=== PATIENT | male | born 1960 | race Caucasian/White ===

== ENCOUNTER 2017-03-17 20:32 | Emergency (ER) | payer SELFPAY ==
[2017-03-17 20:32] VITALS: BMI 26.6
[2017-03-17 21:26] VITALS: BP 130/80; PULSE 100; RESP 18; TEMP 98.2; O2SAT 97
--- NOTE | 2017-03-17 21:38 | C.PDOC ---
History Of Present Illness 56 year old male who presents to the ER with a complaint of pain to the left 5th toe nail for the past 2 days. Patient has not taken anything for the pain; denies trauma, warmth, or redness to the area. Time Seen by Provider: 03/17/17 21:04 Chief Complaint (Nursing): Lower Extremity Problem/Injury History Per: Patient History/Exam Limitations: no limitations Onset/Duration Of Symptoms: Days (2) Current Symptoms Are (Timing): Still Present Recent travel outside of the [place]: No Past Medical History Reviewed: Historical Data, Nursing Documentation, Vital Signs Vital Signs: Last Vital Signs Temp 98.2 F 03/17/17 20:35 Pulse 100 H 03/17/17 20:35 Resp 18 03/17/17 20:35 BP 130/80 03/17/17 20:35 Pulse Ox 97 03/17/17 21:39 - Medical History PMH: Hypercholesterolemia Surgical History: No Surg Hx Family History: States: Unknown Family Hx - Social History Hx Tobacco Use: No Hx Alcohol Use: Yes (occasional) Hx Substance Use: No - Immunization History Hx Tetanus Toxoid Vaccination: Yes (2013) Hx Influenza Vaccination: No Hx Pneumococcal Vaccination: No Review Of Systems Musculoskeletal: Positive for: Foot Pain (Left 5th toe) Skin: Negative for: Other (Redness, Warmth) Physical Exam - Physical Exam Appears: Non-toxic, No Acute Distress Skin: Warm, Dry, Other (Dark discoloration of left 5th toe nail) Head: Atraumatic, Normacephalic Oral Mucosa: Moist Extremity: Normal ROM, Tenderness (to left 5th toe nail on palpation; no fluctuance or erythema), No Swelling ED Course And Treatment O2 Sat by Pulse Oximetry: 97 (Room air) Pulse Ox Interpretation: Normal Progress Note: Motrin administered. Patient has what appears to be onychomycosis ; advised to follow up with podiatry. Disposition Counseled Patient/Family Regarding: Diagnosis, Need For Followup, Rx Given - Disposition Disposition: HOME/ ROUTINE Disposition Time: 21:35 Condition: STABLE Additional Instructions: Please follow up with podiatry clinic Take meds as directed Return to ER if worse Prescriptions: Econazole 1% [Spectazole Cr] 1 applic TP BID #30 g Ibuprofen [Motrin] 600 mg PO Q6H #20 tab Instructions: Antifungals (On the skin) Print Language: BELARUSIAN - Clinical Impression Clinical Impression: Onychomycosis - Scribe Statement The provider has reviewed the documentation as recorded by the Scribmynor Dinero All medical record entries made by the Raviibmynor were at my direction and personally dictated by me. I have reviewed the chart and agree that the record accurately reflects my personal performance of the history, physical exam, medical decision making, and the department course for this patient. I have also personally directed, reviewed, and agree with the discharge instructions and disposition.
== END 2017-03-17 21:43 | disposition home or self-care (01) ==
LOC: C.ER 20:32
DX: B35.1 Tinea unguium (principal)